=== PATIENT | female | born 1945 | race Caucasian/White ===

== ENCOUNTER 2020-12-23 14:02 | Inpatient (IN) | payer BC, SELFPAY ==
[2020-12-23 14:11] VITALS: BP 104/71; BP 113/63; PULSE 101; PULSE 103; RESP 17; TEMP 35; O2SAT 100; BMI 26.5
--- NOTE | 2020-12-23 14:20 | ECG_ITS ---
Test Reason : WEAKNESS Blood Pressure : / mmHG Vent. Rate : 083 BPM Atrial Rate : 083 BPM P-R Int : 112 ms QRS Dur : 086 ms QT Int : 402 ms P-R-T Axes : 070 059 243 degrees QTc Int : 472 ms Artifact in tracing Normal sinus rhythm Possible Left atrial enlargement ST & T wave abnormality, consider inferolateral ischemia Prolonged QT Abnormal ECG No previous ECGs available Referred By: Anthony Braden Electronically Signed By:HENOK HUERTAS
--- NOTE | 2020-12-23 14:20 | XR_ITS ---
EXAMINATION: CHEST, BILATERAL HUMERUS, RIGHT HIP, PELVIS AND RIGHT ANKLE. CLINICAL INFORMATION: Status post fall. COMPARISON: None TECHNIQUE: Chest one view. Humerus 2 views each. Right ankle 3 views. Right hip 2 views. AP pelvis one view. FINDINGS: CHEST: The lungs are well-expanded and clear of acute pneumonic process. Heart size and pulmonary vascularity is normal. No visible rib fractures seen. RIGHT HUMERUS: There is no visible fracture or bony abnormality. The soft tissues are normal. The shoulder joint is in alignment. Mild degenerative arthritic changes right AC joint are seen. LEFT HUMERUS: There is cortical bone step-off proximal humerus suggestive of probable fracture. There is mild osteopenia. Mild degenerative arthritic changes left AC joint. The glenohumeral joint space is normal. The soft tissues are normal. RIGHT HIP: There is no visible acute fracture, dislocation or subluxation. No bony abnormality seen. The soft tissues are normal. AP PELVIS: There is normal symmetry of bilateral hip joints and SI joints. No visible fracture seen involving the pelvic bones. The soft tissues are normal. RIGHT ANKLE: There is an old healed distal fibular fracture. No acute fracture or dislocation seen. Mild reduction ankle mortise joint space with spurring seen likely DJD. The subtalar joint is normal. There is a small calcaneal heel enthesophyte. There is mild dorsal talonavicular spurring. XR/XR shoulder RT 1V IMPRESSION: Unremarkable chest exam. There is cortical step-off proximal humerus likely fracture of indeterminate age in left humerus. Mild degenerative changes left AC joint. Unremarkable right humerus, right hip, AP pelvis. No fracture or fracture dislocation right ankle except for mild DJD ankle mortise and degenerative calcaneal heel spurring and dorsal talonavicular spurring.
--- NOTE | 2020-12-23 14:20 | PC.NURSE ---
pt to radiology
--- NOTE | 2020-12-23 14:21 | CT_ITS ---
EXAMINATION: HEAD CT AND CERVICAL SPINE CT WITHOUT CONTRAST CLINICAL INFORMATION: Fall COMPARISON: None TECHNIQUE: Axial images through the brain and cervical spine without contrast. Sagittal and coronal reconstructions on the technologist workstation were performed. Patient dose 646+2 7 0 mg/cm. FINDINGS: Head CT: There is no evidence for an extra-axial collection. There is no evidence for intra-axial or extra-axial hemorrhage. The ventricles and extra-axial CSF spaces are prominent suggestive of mild generalized atrophy. There is nonspecific periventricular white matter disease. No mass, mass effect or infarct. There is slightly high attenuation soft tissue swelling adjacent to the bilateral frontal bones and right superior orbit, left greater than right. There is hyperostosis of the frontal bones. No skull fracture is seen. Visualized paranasal sinuses, mastoid air cells and middle ears are clear. Cervical spine: There is exaggerated cervical kyphosis. There is curvature of the lower cervical and upper thoracic spine to the right. Bone alignment is otherwise normal. No acute fracture or dislocation is seen. There is slight loss of height of superior endplate of the T4 vertebral body suggestive of old mild compression fracture. There is degenerative spondylosis from C4-C5 to C6-C7. There is degenerative disc disease at C4-C5. Prevertebral soft tissues are normal. There is evidence of emphysema. Lung apices are clear. There is evidence of atherosclerotic disease. The visualized esophagus is slightly dilated and filled with air. CT/CT cervical spine wo con IMPRESSION: Head CT: Generalized atrophy and nonspecific periventricular white matter disease. No acute findings. Bilateral high attenuation soft tissue adjacent to both frontal bones, left greater than right, questionable for scalp hematomas. Cervical spine: Old mild T4 vertebral body compression fracture. No acute fracture seen. Degenerative changes.
--- NOTE | 2020-12-23 14:26 | ED.FALL ---
HPI - Fall General Chief Complaint: Fall Stated Complaint: found on floor, right hip/arm pain Time Seen by Provider: 12/23/20 14:19 Source: patient Mode of arrival: EMS Limitations: no limitations History of Present Illness HPI Narrative: Patient lives alone per EMS and patient , she fell about 5 days ago unable to get up from the floor stayed on the floor for that time feeling been feeling very weak salt in urine and feces with ecchymosis on the forehead drug rash on the right hip and pain in the right shoulder right hip. Details of the fall is not very clear patient does not remember MD complaint: fall Onset (ago): day(s) (5) Related Data Allergies Allergy/AdvReac Type Severity Reaction Status Date / Time No Known Allergies Allergy Verified 12/23/20 14:20 Review of Systems Review of Systems: Constitutional : No Weight loss, No Fever, No Chills ENT/Mouth : No sore throat, No Rhinorrhea Eyes: No Eye Pain, No Swelling Cardiovascular : No Chest Pain, no palpitations Respiratory : No Cough, No Sputum, no shortness of breath Gastrointestinal : no Nausea, No Vomiting, No Diarrhea, No abdominal Pain, no black stools Genitourinary : No Dysuria, No Urinary Frequency Musculoskeletal : No joint pain, No Myalgias, No Joint Swelling Skin : Ecchymotic rashes and multiple skin abrasions++ Neuro : +++ Weakness, No Numbness, No Dizziness, No Headache Psych : No Anxiety/Panic, No Depression Heme/Lymph: +++ Bruising, No Lymphadenopathy Endocrine : No Polyuria, No Polydipsia All other systems reviewed and are negative [facility] Past Medical History Medical History (Updated 12/23/20 @ 16:35 by Anthony Braden MD) HTN (hypertension) Social History Social History Advance Directives: No Advance Directives Information Provided: Yes Physical Exam Vital Signs: Vital Signs: Last Vital Signs Temp 95 F L 12/23/20 14:11 Pulse 101 H 12/23/20 14:11 Resp 17 12/23/20 14:11 BP 113/63 12/23/20 14:11 Pulse Ox 100 12/23/20 14:11 Body Mass Index 26.5 Const: General: alert, awake, in distress, ill appearing, poor hygiene and tired appearing Nutritional Appearance: thin Orientation/consciousness: patient oriented x3 HENMT: Head: Yes normocephalic, Yes contusion, Yes raccoon eyes and Yes periorbital ecchymosis Ears: hearing grossly normal bilaterally General nose exam: Normal external nose present Face and sinus: Yes normal facial exam Mouth: Abnormal oral and palatal mucosa present (dry) Eyes: General: appearance normal, both eyes and all related structures Conjunctivae: conjunctivae normal Sclerae: sclerae normal Corneas: corneas normal Pupils: Equal, round and reactive pupils present Neck: Neck: Yes normal visual inspection, No midline deformity, No tender and Yes no JVD Chest: Chest palpation & inspection: normal inspection of the chest and normal palpation of entire chest wall Resp: Effort & Inspection: normal respiratory effort Auscultation: clear to auscultation bilaterally, no rales, no rhonchi and no wheezes Percussion: percussion normal Cardio: Jugular venous distension: no JVD Palpation: normal PMI Rate: regular rate Rhythm: regular rhythm Heart sounds: S1 normal heart sound present and S2 normal heart sound present Peripheral pulses: Peripheral pulses 2+ throughout GI: Inspection: Yes normal to inspection Palpation (GI): Soft to palpation and nontender Auscultation: normal bowel sounds : General: Yes no CVA tenderness Back/Spine/Pelvis: Back: no CVA tenderness Thoracic/Lumbar Spine: thoracic and lumbar spine normal to inspection Skin: Full body images: 1. Deep ulcer with surrounding erythema 2. Ecchymosis 3. Abrasion 4. Abrasion 5. Abrasion Neuro: General: patient oriented x3, moves all extremities, no focal motor deficits and CN's II-XI intact bilaterally Cranial nerves: Yes Equal, round and reactive pupils present Extrem: Shoulder/upper arm images: 1. Tenderness proximal humerus no significant deformity Course Course Course Narrative: Patient very weak status post fall lives alone lab showed acute renal failure dehydration and hypernatremia will admit patient for IV hydration Reevaluation(s) Reevaluation #1: Patient's lab showed acute renal failure with mild rhabdomyolysis will admit patient for IV hydration and renal failure MDM - Fall MDM Narrative Medical decision making narrative: Patient status post fall lives alone came with multiple bruises for few days duration x-rays and CT scan negative for any fracture or bleed awaiting for the labs will give IV fluids will review her labs and decide about disposition Lab Data Result diagrams: 12/23/20 15:33 12/23/20 15:33 Labs: Lab Results 12/23/20 12/23/20 12/23/20 Range/Units 15:33 15:33 15:33 WBC 9.2 (4.8-10.8) X10*3/uL RBC 4.27 (4.20-5.50) X10*6/uL Hgb 12.8 (12.0-16.0) g/dl Hct 37.6 (37-47) % MCV 88.1 (80-98) fL MCH 30.0 (27.0-33.0) pg MCHC 34.0 (31.0-35.0) g/dl RDW 13.8 (11.0-16.0) % Plt Count 265 (160-400) X10*3/uL MPV 10.3 (9.4-12.3) fL Immature Gran % (Auto) 0.4 (0.0-0.4) % Neut % (Auto) 85.5 H (45-73) % Lymph % (Auto) 4.2 L (20-40) % [place] % (Auto) 9.8 (2-11) % Eos % (Auto) 0.0 (0-4) % Baso % (Auto) 0.1 (0-2) % Lymph # (Auto) 0.4 L (1.2-4.9) X10*3/uL [place] # (Auto) 0.9 (0.1-1.2) X10*3/uL Eos # (Auto) 0.0 (0.0-0.4) X10*3/uL Baso # (Auto) 0.0 (0.0-0.2) X10*3/uL Abs Immat Gran (auto) 0.04 H (0.00-0.03) X10*3/uL Absolute Neuts (auto) 7.9 (2.0-8.3) X10*3/uL Absolute Nucleated RBC 0.000 (0.0-0.012) X10*3/uL Nucleated RBC % (auto) 0.0 (0.0-0.2) /100WBC Smear Tech's Comments VERIFIED PT 12.5 (10.8-13.0) SEC INR 1.1 (0.9-1.1) APTT 27.9 (24.1-38.0) SEC Sodium 151 H (135-145) mmol/L Potassium 3.9 (3.3-5.1) mmol/l Chloride 116 H (96-108) mmol/L Carbon Dioxide 19 L (22-29) mmol/L Anion Gap 20 (12-20) BUN 93 H* (9-16) mg/dL Creatinine 1.43 H (0.5-1.4) mg/dL Estim Creat Clear Calc 31.5 Estimated GFR 36 Random Glucose 139 H (60-115) mg/dL Lactic Acid (0.5-2.0) mmol/L Calcium 8.7 (8.4-10.2) mg/dL Total Bilirubin 1.0 (0.0-1.0) mg/dL Direct Bilirubin 0.5 (0.0-0.5) mg/dL AST 34 H (5-31) U/L ALT 32 H (0-31) U/L Alkaline Phosphatase 75 (39-117) U/L Total Creatine Kinase (26-140) U/L Troponin I High Sens (<3.5-17.0) ng/L Total Protein 6.0 L (6.5-8.0) g/dL Albumin 3.8 (3.5-5.0) g/dL COVID-19 ([place]) (Negative) COVID-19 Clin Com 12/23/20 12/23/20 12/23/20 Range/Units 15:33 15:33 15:33 WBC (4.8-10.8) X10*3/uL RBC (4.20-5.50) X10*6/uL Hgb (12.0-16.0) g/dl Hct (37-47) % MCV (80-98) fL MCH (27.0-33.0) pg MCHC (31.0-35.0) g/dl RDW (11.0-16.0) % Plt Count (160-400) X10*3/uL MPV (9.4-12.3) fL Immature Gran % (Auto) (0.0-0.4) % Neut % (Auto) (45-73) % Lymph % (Auto) (20-40) % [place] % (Auto) (2-11) % Eos % (Auto) (0-4) % Baso % (Auto) (0-2) % Lymph # (Auto) (1.2-4.9) X10*3/uL [place] # (Auto) (0.1-1.2) X10*3/uL Eos # (Auto) (0.0-0.4) X10*3/uL Baso # (Auto) (0.0-0.2) X10*3/uL Abs Immat Gran (auto) (0.00-0.03) X10*3/uL Absolute Neuts (auto) (2.0-8.3) X10*3/uL Absolute Nucleated RBC (0.0-0.012) X10*3/uL Nucleated RBC % (auto) (0.0-0.2) /100WBC Smear Tech's Comments PT (10.8-13.0) SEC INR (0.9-1.1) APTT (24.1-38.0) SEC Sodium (135-145) mmol/L Potassium (3.3-5.1) mmol/l Chloride (96-108) mmol/L Carbon Dioxide (22-29) mmol/L Anion Gap (12-20) BUN (9-16) mg/dL Creatinine (0.5-1.4) mg/dL Estim Creat Clear Calc Estimated GFR Random Glucose (60-115) mg/dL Lactic Acid 1.7 (0.5-2.0) mmol/L Calcium (8.4-10.2) mg/dL Total Bilirubin (0.0-1.0) mg/dL Direct Bilirubin (0.0-0.5) mg/dL AST (5-31) U/L ALT (0-31) U/L Alkaline Phosphatase (39-117) U/L Total Creatine Kinase (26-140) U/L Troponin I High Sens 18.6 H (<3.5-17.0) ng/L Total Protein (6.5-8.0) g/dL Albumin (3.5-5.0) g/dL COVID-19 ([place]) Negative (Negative) COVID-19 Clin Com See Note 12/23/20 Range/Units 15:33 WBC (4.8-10.8) X10*3/uL RBC (4.20-5.50) X10*6/uL Hgb (12.0-16.0) g/dl Hct (37-47) % MCV (80-98) fL MCH (27.0-33.0) pg MCHC (31.0-35.0) g/dl RDW (11.0-16.0) % Plt Count (160-400) X10*3/uL MPV (9.4-12.3) fL Immature Gran % (Auto) (0.0-0.4) % Neut % (Auto) (45-73) % Lymph % (Auto) (20-40) % [place] % (Auto) (2-11) % Eos % (Auto) (0-4) % Baso % (Auto) (0-2) % Lymph # (Auto) (1.2-4.9) X10*3/uL [place] # (Auto) (0.1-1.2) X10*3/uL Eos # (Auto) (0.0-0.4) X10*3/uL Baso # (Auto) (0.0-0.2) X10*3/uL Abs Immat Gran (auto) (0.00-0.03) X10*3/uL Absolute Neuts (auto) (2.0-8.3) X10*3/uL Absolute Nucleated RBC (0.0-0.012) X10*3/uL Nucleated RBC % (auto) (0.0-0.2) /100WBC Smear Tech's Comments PT (10.8-13.0) SEC INR (0.9-1.1) APTT (24.1-38.0) SEC Sodium (135-145) mmol/L Potassium (3.3-5.1) mmol/l Chloride (96-108) mmol/L Carbon Dioxide (22-29) mmol/L Anion Gap (12-20) BUN (9-16) mg/dL Creatinine (0.5-1.4) mg/dL Estim Creat Clear Calc Estimated GFR Random Glucose (60-115) mg/dL Lactic Acid (0.5-2.0) mmol/L Calcium (8.4-10.2) mg/dL Total Bilirubin (0.0-1.0) mg/dL Direct Bilirubin (0.0-0.5) mg/dL AST (5-31) U/L ALT (0-31) U/L Alkaline Phosphatase (39-117) U/L Total Creatine Kinase 548 H (26-140) U/L Troponin I High Sens (<3.5-17.0) ng/L Total Protein (6.5-8.0) g/dL Albumin (3.5-5.0) g/dL COVID-19 ([place]) (Negative) COVID-19 Clin Com ECG Data Attestation: I personally reviewed and interpreted this ECG as follows: Interpretation: Normal sinus rhythm heart rate 83 beats per minute nonspecific ST T wave changes normal axis impression no acute ischemia Discharge Plan Discharge Clinical Impression: Weakness generalized Acute renal failure Qualifiers: Acute renal failure type: with acute tubular necrosis Qualified Code(s): N17.0 - Acute kidney failure with tubular necrosis Rhabdomyolysis Qualifiers: Rhabdomyolysis type: non-traumatic Qualified Code(s): M62.82 - Rhabdomyolysis Fall Qualifiers: Encounter type: initial encounter Qualified Code(s): W19.XXXA - Unspecified fall, initial encounter Patient Disposition: Admitted As Inpatient
--- NOTE | 2020-12-23 14:27 | XR_ITS ---
EXAMINATION: CHEST, BILATERAL HUMERUS, RIGHT HIP, PELVIS AND RIGHT ANKLE. CLINICAL INFORMATION: Status post fall. COMPARISON: None TECHNIQUE: Chest one view. Humerus 2 views each. Right ankle 3 views. Right hip 2 views. AP pelvis one view. FINDINGS: CHEST: The lungs are well-expanded and clear of acute pneumonic process. Heart size and pulmonary vascularity is normal. No visible rib fractures seen. RIGHT HUMERUS: There is no visible fracture or bony abnormality. The soft tissues are normal. The shoulder joint is in alignment. Mild degenerative arthritic changes right AC joint are seen. LEFT HUMERUS: There is cortical bone step-off proximal humerus suggestive of probable fracture. There is mild osteopenia. Mild degenerative arthritic changes left AC joint. The glenohumeral joint space is normal. The soft tissues are normal. RIGHT HIP: There is no visible acute fracture, dislocation or subluxation. No bony abnormality seen. The soft tissues are normal. AP PELVIS: There is normal symmetry of bilateral hip joints and SI joints. No visible fracture seen involving the pelvic bones. The soft tissues are normal. RIGHT ANKLE: There is an old healed distal fibular fracture. No acute fracture or dislocation seen. Mild reduction ankle mortise joint space with spurring seen likely DJD. The subtalar joint is normal. There is a small calcaneal heel enthesophyte. There is mild dorsal talonavicular spurring. XR/XR hip RT min 2V IMPRESSION: Unremarkable chest exam. There is cortical step-off proximal humerus likely fracture of indeterminate age in left humerus. Mild degenerative changes left AC joint. Unremarkable right humerus, right hip, AP pelvis. No fracture or fracture dislocation right ankle except for mild DJD ankle mortise and degenerative calcaneal heel spurring and dorsal talonavicular spurring.
--- NOTE | 2020-12-23 14:30 | PC.NURSE ---
patient medicated per order
--- NOTE | 2020-12-23 14:41 | XR_ITS ---
EXAMINATION: CHEST, BILATERAL HUMERUS, RIGHT HIP, PELVIS AND RIGHT ANKLE. CLINICAL INFORMATION: Status post fall. COMPARISON: None TECHNIQUE: Chest one view. Humerus 2 views each. Right ankle 3 views. Right hip 2 views. AP pelvis one view. FINDINGS: CHEST: The lungs are well-expanded and clear of acute pneumonic process. Heart size and pulmonary vascularity is normal. No visible rib fractures seen. RIGHT HUMERUS: There is no visible fracture or bony abnormality. The soft tissues are normal. The shoulder joint is in alignment. Mild degenerative arthritic changes right AC joint are seen. LEFT HUMERUS: There is cortical bone step-off proximal humerus suggestive of probable fracture. There is mild osteopenia. Mild degenerative arthritic changes left AC joint. The glenohumeral joint space is normal. The soft tissues are normal. RIGHT HIP: There is no visible acute fracture, dislocation or subluxation. No bony abnormality seen. The soft tissues are normal. AP PELVIS: There is normal symmetry of bilateral hip joints and SI joints. No visible fracture seen involving the pelvic bones. The soft tissues are normal. RIGHT ANKLE: There is an old healed distal fibular fracture. No acute fracture or dislocation seen. Mild reduction ankle mortise joint space with spurring seen likely DJD. The subtalar joint is normal. There is a small calcaneal heel enthesophyte. There is mild dorsal talonavicular spurring. XR/XR humerus RT IMPRESSION: Unremarkable chest exam. There is cortical step-off proximal humerus likely fracture of indeterminate age in left humerus. Mild degenerative changes left AC joint. Unremarkable right humerus, right hip, AP pelvis. No fracture or fracture dislocation right ankle except for mild DJD ankle mortise and degenerative calcaneal heel spurring and dorsal talonavicular spurring.
--- NOTE | 2020-12-23 14:45 | XR_ITS ---
EXAMINATION: CHEST, BILATERAL HUMERUS, RIGHT HIP, PELVIS AND RIGHT ANKLE. CLINICAL INFORMATION: Status post fall. COMPARISON: None TECHNIQUE: Chest one view. Humerus 2 views each. Right ankle 3 views. Right hip 2 views. AP pelvis one view. FINDINGS: CHEST: The lungs are well-expanded and clear of acute pneumonic process. Heart size and pulmonary vascularity is normal. No visible rib fractures seen. RIGHT HUMERUS: There is no visible fracture or bony abnormality. The soft tissues are normal. The shoulder joint is in alignment. Mild degenerative arthritic changes right AC joint are seen. LEFT HUMERUS: There is cortical bone step-off proximal humerus suggestive of probable fracture. There is mild osteopenia. Mild degenerative arthritic changes left AC joint. The glenohumeral joint space is normal. The soft tissues are normal. RIGHT HIP: There is no visible acute fracture, dislocation or subluxation. No bony abnormality seen. The soft tissues are normal. AP PELVIS: There is normal symmetry of bilateral hip joints and SI joints. No visible fracture seen involving the pelvic bones. The soft tissues are normal. RIGHT ANKLE: There is an old healed distal fibular fracture. No acute fracture or dislocation seen. Mild reduction ankle mortise joint space with spurring seen likely DJD. The subtalar joint is normal. There is a small calcaneal heel enthesophyte. There is mild dorsal talonavicular spurring. XR/XR ankle RT min 3V IMPRESSION: Unremarkable chest exam. There is cortical step-off proximal humerus likely fracture of indeterminate age in left humerus. Mild degenerative changes left AC joint. Unremarkable right humerus, right hip, AP pelvis. No fracture or fracture dislocation right ankle except for mild DJD ankle mortise and degenerative calcaneal heel spurring and dorsal talonavicular spurring.
[2020-12-23] MEDS: 0.9 % Sodium Chloride 1,000 ML 999 ML IVCONT ×2 (15:04→16:18)
--- NOTE | 2020-12-23 15:20 | PC.NURSE ---
patient medicated per order
--- NOTE | 2020-12-23 15:30 | PC.NURSE ---
bed bath given to patient
[2020-12-23 15:45] LABS: Basophils Percent Auto 0.1 % (0-2); Hematocrit 37.6 % (37-47); Hemoglobin 12.8 g/dl (12.0-16.0); Imm Gran Abs Auto 0.04 X10*3/uL (0.00-0.03); Imm Gran Pct Auto 0.4 % (0.0-0.4); Lymphocytes Absolute Auto 0.4 X10*3/uL (1.2-4.9); Lymphocytes Percent Auto 4.2 % (20-40); MANUAL DIFF FLAG SCAN; Mean Corpuscular Volume 88.1 fL (80-98); Mean Platelet Volume 10.3 fL (9.4-12.3); Monocytes Absolute Auto 0.9 X10*3/uL (0.1-1.2); Monocytes Percent Auto 9.8 % (2-11); Neutrophils Absolute Auto 7.9 X10*3/uL (2.0-8.3); Neutrophils Percent Auto 85.5 % (45-73); Platelet Count 265 X10*3/uL (160-400); Red Blood Count 4.27 X10*6/uL (4.20-5.50); Red Cell Distribution Width 13.8 % (11.0-16.0); SCAN SMEAR FLAG 1; White Blood Count 9.2 X10*3/uL (4.8-10.8)
[2020-12-23 15:52] LABS: INTERNATIONAL NORM RATIO 1.1 (0.9-1.1); Prothrombin Time 12.5 SEC (10.8-13.0)
[2020-12-23 15:55] LABS: Partial Thromboplastin Time 27.9 SEC (24.1-38.0)
--- NOTE | 2020-12-23 16:00 | PC.NURSE ---
IV INSERTED, LABS DRAWN, VITALS STABLE
[2020-12-23 16:04] LABS: Lactic Acid 1.7 mmol/L (0.5-2.0)
[2020-12-23 16:10] LABS: COVID-19 Test Negative (Negative); IDNOW Serial# 9DD0AD1C
[2020-12-23] MEDS: Morphine Sulfate 4 MG/ML CARTRIDGE IVPUSH (16:16)
[2020-12-23] MEDS: ondansetron HCL 4 MG/2 ML VIAL IVPUSH (16:16)
[2020-12-23 16:20] LABS: Alanine Aminotransferase 32 U/L (0-31); Albumin Level 3.8 g/dL (3.5-5.0); Alkaline Phosphatase 75 U/L (39-117); Anion Gap 20 (12-20); Aspartate Amino Transferase 34 U/L (5-31); Bilirubin Direct 0.5 mg/dL (0.0-0.5); Blood Urea Nitrogen 93 mg/dL (9-16); Calcium 8.7 mg/dL (8.4-10.2); Carbon Dioxide 19 mmol/L (22-29); Chloride 116 mmol/L (96-108); Creatinine Clr Calc Pharmacy 31.5; Estimated Glomerular Filt Rate 36; Glucose Random 139 mg/dL (60-115); Potassium 3.9 mmol/l (3.3-5.1); Sodium 151 mmol/L (135-145); Troponin-I High Sensitivity 18.6 ng/L (<3.5-17.0)
--- NOTE | 2020-12-23 16:21 | PC.NURSE ---
patient medicated per order
[2020-12-23 16:33] LABS: SLIDE REVIEW VERIFIED
--- NOTE | 2020-12-23 17:14 | PM.IMHP ---
History of Present Illness Date of Service: 12/23/20 Chief Complaint: found on ground 75F, history is from patient, she is a poor historian, unable to contact brother. Patient states that she fell 5 days prior to presentation. She states fall was mechanical, fell off of chair. She states she was unable to get back up. She was unclear about her timeline, denies loss of consciousness, unclear how much she is eaten and drunk over the last few days. Her brother came to check on her and found on the ground and called EMS. Traumatic workup was unremarkable. Lab significant for hypernatremia of 151 and acute kidney injury of 1.41 creatinine. Patient given 2 L of normal saline and admission requested. Review of Systems Review of Systems: Constitutional: Denies fever, denies Chills Eyes: denies blurry vision ENT: denies sore throat CVS: denies chest pain Respiratory: Denies dyspnea GI: no abdominal pain : denies dysuria MSK: denies neck pain Skin: denies rash Neuro: denies specific motor weakness Psych: denies suicidal ideation Endocrine: denies heat/cold intoleratnce Hematologic: denies easy bleeding Allergy: denies hives [facility] Medical History B12 deficiency COPD (chronic obstructive pulmonary disease) HLD (hyperlipidemia) HTN (hypertension) Multiple myeloma Plasmacytoma Pertinent family history: no cad Family history: reviewed and not pertinent Social History (Updated 12/23/20 @ 17:17 by Kunal Shaw MD) Smoking Status: Unknown if ever smoked Advance Directives: No Advance Directives Information Provided: Yes Meds Allergies Allergy/AdvReac Type Severity Reaction Status Date / Time No Known Allergies Allergy Verified 12/23/20 14:20 Physical Exam Vital Signs and Narrative: Vital Signs: Last Vital Signs Temp 95 F L 12/23/20 14:11 Pulse 101 H 12/23/20 14:11 Resp 17 12/23/20 14:11 BP 113/63 12/23/20 14:11 Pulse Ox 100 12/23/20 14:11 Body Mass Index 26.5 General: no acute distress, frail HEENT: bialteral periorbital echymosis Neck: normal to visual inspection CVS: S1, S2, RRR Resp: CTA bilateral Chest: non tender GI: soft, non tender, non distended : no CVA tenderness Skin: no rashes Extremities: no edema Neuro: Oriented X3, grossly intact Psych: cooperative, ipmaired insight Results Labs CBC and Chem 7: 12/23/20 15:33 12/23/20 15:33 Labs: Laboratory Results - last 24 hr 12/23/20 12/23/20 12/23/20 15:33 15:33 15:33 MCV 88.1 MCH 30.0 MCHC 34.0 RDW 13.8 Plt Count 265 MPV 10.3 Immature Gran % (Auto) 0.4 Neut % (Auto) 85.5 H Lymph % (Auto) 4.2 L [place] % (Auto) 9.8 Eos % (Auto) 0.0 Baso % (Auto) 0.1 Lymph # (Auto) 0.4 L [place] # (Auto) 0.9 Eos # (Auto) 0.0 Baso # (Auto) 0.0 Abs Immat Gran (auto) 0.04 H Absolute Neuts (auto) 7.9 Absolute Nucleated RBC 0.000 Nucleated RBC % (auto) 0.0 Smear Tech's Comments VERIFIED PT 12.5 INR 1.1 APTT 27.9 Anion Gap 20 Estim Creat Clear Calc 31.5 Estimated GFR 36 Random Glucose 139 H Lactic Acid Calcium 8.7 Total Bilirubin 1.0 Direct Bilirubin 0.5 AST 34 H ALT 32 H Alkaline Phosphatase 75 Total Creatine Kinase Troponin I High Sens Total Protein 6.0 L Albumin 3.8 COVID-19 ([place]) [facility] 12/23/20 12/23/20 12/23/20 15:33 15:33 15:33 MCV MCH MCHC RDW Plt Count MPV Immature Gran % (Auto) Neut % (Auto) Lymph % (Auto) [place] % (Auto) Eos % (Auto) Baso % (Auto) Lymph # (Auto) [place] # (Auto) Eos # (Auto) Baso # (Auto) Abs Immat Gran (auto) Absolute Neuts (auto) Absolute Nucleated RBC Nucleated RBC % (auto) Smear Tech's Comments PT INR APTT Anion Gap Estim Creat Clear Calc Estimated GFR Random Glucose Lactic Acid 1.7 Calcium Total Bilirubin Direct Bilirubin AST ALT Alkaline Phosphatase Total Creatine Kinase Troponin I High Sens 18.6 H Total Protein Albumin COVID-19 ([place]) Negative COVID-19 Clin Com See Note 12/23/20 15:33 MCV MCH MCHC RDW Plt Count MPV Immature Gran % (Auto) Neut % (Auto) Lymph % (Auto) [place] % (Auto) Eos % (Auto) Baso % (Auto) Lymph # (Auto) [place] # (Auto) Eos # (Auto) Baso # (Auto) Abs Immat Gran (auto) Absolute Neuts (auto) Absolute Nucleated RBC Nucleated RBC % (auto) Smear Tech's Comments PT INR APTT Anion Gap Estim Creat Clear Calc Estimated GFR Random Glucose Lactic Acid Calcium Total Bilirubin Direct Bilirubin AST ALT Alkaline Phosphatase Total Creatine Kinase 548 H Troponin I High Sens Total Protein Albumin COVID-19 ([place]) COVID-19 Clin Com Imaging Radiologist's Impressions: Impressions Chest X-Ray 12/23/20 14:20 IMPRESSION: Unremarkable chest exam. There is cortical step-off proximal humerus likely fracture of indeterminate age in left humerus. Mild degenerative changes left AC joint. Unremarkable right humerus, right hip, AP pelvis. No fracture or fracture dislocation right ankle except for mild DJD ankle mortise and degenerative calcaneal heel spurring and dorsal talonavicular spurring. Head CT 12/23/20 14:20 IMPRESSION: Head CT: Generalized atrophy and nonspecific periventricular white matter disease. No acute findings. Bilateral high attenuation soft tissue adjacent to both frontal bones, left greater than right, questionable for scalp hematomas. Cervical spine: Old mild T4 vertebral body compression fracture. No acute fracture seen. Degenerative changes. Pelvis X-Ray 12/23/20 14:20 IMPRESSION: Unremarkable chest exam. There is cortical step-off proximal humerus likely fracture of indeterminate age in left humerus. Mild degenerative changes left AC joint. Unremarkable right humerus, right hip, AP pelvis. No fracture or fracture dislocation right ankle except for mild DJD ankle mortise and degenerative calcaneal heel spurring and dorsal talonavicular spurring. Shoulder X-Ray 12/23/20 14:20 IMPRESSION: Unremarkable chest exam. There is cortical step-off proximal humerus likely fracture of indeterminate age in left humerus. Mild degenerative changes left AC joint. Unremarkable right humerus, right hip, AP pelvis. No fracture or fracture dislocation right ankle except for mild DJD ankle mortise and degenerative calcaneal heel spurring and dorsal talonavicular spurring. Cervical Spine CT 12/23/20 14:21 IMPRESSION: Head CT: Generalized atrophy and nonspecific periventricular white matter disease. No acute findings. Bilateral high attenuation soft tissue adjacent to both frontal bones, left greater than right, questionable for scalp hematomas. Cervical spine: Old mild T4 vertebral body compression fracture. No acute fracture seen. Degenerative changes. Hip X-Ray 12/23/20 14:27 IMPRESSION: Unremarkable chest exam. There is cortical step-off proximal humerus likely fracture of indeterminate age in left humerus. Mild degenerative changes left AC joint. Unremarkable right humerus, right hip, AP pelvis. No fracture or fracture dislocation right ankle except for mild DJD ankle mortise and degenerative calcaneal heel spurring and dorsal talonavicular spurring. Humerus X-Ray 12/23/20 14:41 IMPRESSION: Unremarkable chest exam. There is cortical step-off proximal humerus likely fracture of indeterminate age in left humerus. Mild degenerative changes left AC joint. Unremarkable right humerus, right hip, AP pelvis. No fracture or fracture dislocation right ankle except for mild DJD ankle mortise and degenerative calcaneal heel spurring and dorsal talonavicular spurring. Humerus X-Ray 12/23/20 14:41 IMPRESSION: Unremarkable chest exam. There is cortical step-off proximal humerus likely fracture of indeterminate age in left humerus. Mild degenerative changes left AC joint. Unremarkable right humerus, right hip, AP pelvis. No fracture or fracture dislocation right ankle except for mild DJD ankle mortise and degenerative calcaneal heel spurring and dorsal talonavicular spurring. Ankle X-Ray 12/23/20 14:45 IMPRESSION: Unremarkable chest exam. There is cortical step-off proximal humerus likely fracture of indeterminate age in left humerus. Mild degenerative changes left AC joint. Unremarkable right humerus, right hip, AP pelvis. No fracture or fracture dislocation right ankle except for mild DJD ankle mortise and degenerative calcaneal heel spurring and dorsal talonavicular spurring. Assessment and Plan (1) Acute renal failure: Qualifiers: Acute renal failure type: with acute tubular necrosis Qualified Code(s): N17.0 - Acute kidney failure with tubular necrosis Status: Acute (2) Weakness generalized: Status: Acute (3) Fall: Qualifiers: Encounter type: initial encounter Qualified Code(s): W19.XXXA - Unspecified fall, initial encounter Status: Acute (4) HTN (hypertension): Status: Acute (5) Multiple myeloma: Status: Acute (6) B12 deficiency: Status: Acute (7) Plasmacytoma: Status: Acute 75F presented with fall Mechanical fall complicated by acute kidney injury and dehydration with hypernatremia Status post 2 L of normal saline in ED, will change fluids to D5 half-normal saline, monitor BMP Physical therapy eval No evidence of significant trauma on imaging Hypertension Currently low normal blood pressure, hold BP meds B12 deficiency B12 supplement Multiple myeloma/plasmacytoma Outpatient follow-up COPD Stable Full code DVT prophylaxis - mechanical, will hold off on Lovenox given hematomas
[2020-12-23 17:17] VITALS: BP 103/45; PULSE 79; RESP 18; TEMP 36.6; O2SAT 99
--- NOTE | 2020-12-23 18:39 | PC.NURSE ---
REPORT GIVEN TO FLOOR
[2020-12-23 19:52] VITALS: BP 98/54; PULSE 81; RESP 18; TEMP 36.7; O2SAT 100
[2020-12-23] MEDS: Dextrose 5 % and 0.45 % NaCl 1,000 ML 100 ML IVCONT (20:35)
[2020-12-23] MEDS: 0.9 % Sodium Chloride Flush 3 ML SYRINGE IVFLUSH (20:35)
[2020-12-23] MEDS: Acetaminophen 325 MG TABLET 650 MG PO (20:38)
[2020-12-23 23:24] VITALS: BP 96/45; PULSE 87; RESP 18; TEMP 35.9; O2SAT 99
[2020-12-24] VITALS (8 sets, daily range): BP systolic 92–132; BP diastolic 39–72; PULSE 76–96; RESP 16–19; TEMP 36.2–37.3; O2SAT 96–100
[2020-12-24] MEDS: Dextrose 5 % and 0.45 % NaCl 1,000 ML 100 ML IVCONT (05:17)
[2020-12-24 06:43] LABS: Basophils Percent Auto 0.1 % (0-2); Eosinophils Percent Auto 0.1 % (0-4); Hematocrit 32.9 % (37-47); Hemoglobin 11.2 g/dl (12.0-16.0); Imm Gran Abs Auto 0.03 X10*3/uL (0.00-0.03); Imm Gran Pct Auto 0.4 % (0.0-0.4); Lymphocytes Absolute Auto 0.5 X10*3/uL (1.2-4.9); Lymphocytes Percent Auto 7.7 % (20-40); MANUAL DIFF FLAG SCAN; Mean Corpuscular Hemoglobin 30.1 pg (27.0-33.0); Mean Corpuscular Volume 88.4 fL (80-98); Mean Platelet Volume 10.3 fL (9.4-12.3); Monocytes Absolute Auto 0.8 X10*3/uL (0.1-1.2); Monocytes Percent Auto 12.5 % (2-11); Neutrophils Absolute Auto 5.3 X10*3/uL (2.0-8.3); Neutrophils Percent Auto 79.2 % (45-73); Platelet Count 203 X10*3/uL (160-400); Red Blood Count 3.72 X10*6/uL (4.20-5.50); Red Cell Distribution Width 13.7 % (11.0-16.0); SCAN SMEAR FLAG 1; White Blood Count 6.7 X10*3/uL (4.8-10.8)
[2020-12-24 07:11] LABS: Blood Urea Nitrogen 72 mg/dL (9-16); Calcium 7.7 mg/dL (8.4-10.2); Estimated Glomerular Filt Rate 50; Glucose Random 151 mg/dL (60-115)
[2020-12-24 07:24] LABS: Anion Gap 13 (12-20); Carbon Dioxide 23 mmol/L (22-29); Chloride 119 mmol/L (96-108); Potassium 3.5 mmol/l (3.3-5.1); Sodium 151 mmol/L (135-145)
[2020-12-24 07:27] LABS: SLIDE REVIEW VERIFIED
[2020-12-24] MEDS: Cyanocobalamin (Vitamin B-12) 1,000 MCG TABLET 1000 MCG PO (08:51)
[2020-12-24] MEDS: Dextrose 5 % 1,000 ML 100 ML IVCONT ×2 (08:51→18:24)
[2020-12-24] MEDS: 0.9 % Sodium Chloride Flush 3 ML SYRINGE IVFLUSH (08:52)
[2020-12-24] MEDS: Acetaminophen 325 MG TABLET 650 MG PO (08:56)
--- NOTE | 2020-12-24 09:27 | MHC.CM.PN ---
NO CASE MANAGEMENT INTERVENTION INDICATED. DEPT. NAMES WRITTEN ON WHITE BOARD PATIENT IS DISCHARGED HOME WITH NO SERVICES.
--- NOTE | 2020-12-24 09:30 | MHC.CM.PN ---
PATIENT LIVES ALONE. SHE HAS A CANE, WALKER, AND WHEEL CHAIR. SHE REPORTS THAT SHE DRIVES HERSELF WHERE NEEDED. NO VNA OR HOME CARE SERVICES PATIENT HAS A NEIGHBOR IN APARTMENT -1 THAT ASSISTS WHEN NEEDED; HOWEVER, SHE IS UNABLE TO RECALL HIS NAME. SHE IDENTIFIES HER BROTHER BAL HER HCP. SHE IS UNABLE TO RECALL HIS PHONE NUMBER, BUT STATES THAT HE LIVES IN [place]. SHE WILL ASK FOR THIS [employer] IF SHE IS ABLE TO RECALL THE NUMBER, AND SHE AGREES TO COMPLETE A HCP FOR HER MEDICAL RECORDS IF SO. SHE AGREES WITH UNDERSTANDING IMM DELIVERY, AND ASKS THIS [employer]ER OT SIGN FOR HER (SHE IS EATING BREAKFAST AT TIME OF ASSESSMENT) IMM 12/24 IN CHART
--- NOTE | 2020-12-24 09:36 | MHC.CM.PN ---
PATIENT REPORTS THAT HER PCP IS AT [facility], ALTHOUGH SHE IS UNABLE TO RECALL PCP NAME.
--- NOTE | 2020-12-24 10:05 | HO.PM.IMPN ---
Subjective Subjective Date of Service: 12/24/20 Interval History: feeling better Cardiovascular Cardiovascular: Reports no additional cardiovascular complaints Respiratory Respiratory: Reports no additional respiratory complaints Physical Exam Vital Signs: Vital Signs: Last Vital Signs Temp 97.4 F 12/24/20 03:41 Pulse 76 12/24/20 03:41 Resp 18 12/24/20 03:41 BP 105/49 L 12/24/20 03:47 Pulse Ox 100 12/24/20 03:41 Body Mass Index 26.5 General: AO X 3, no acute distress Resp: CTA bilateral CVS: S1,S2,RRR GI: soft, non tender, non distended Neuro: motor grossly intact Psych: appropriate affect periorbital hematomas Objective Data Current Medications Generic Name Dose Route Start Last Admin Trade Name Freq PRN Reason Stop Dose Admin Acetaminophen 650 mg 12/23/20 19:19 12/24/20 08:56 Acetaminophen 325 Mg Tablet PO 650 mg Q6H PRN Administration Pain, Mild (Pain Scale 1-3) Cyanocobalamin 1,000 mcg 12/24/20 09:00 12/24/20 08:51 Cyanocobalamin (Vitamin B-12) 1,000 Mcg Tablet PO 1,000 mcg DAILY ISABEL Administration Dextrose 1,000 mls @ 100 mls/hr 12/24/20 08:00 12/24/20 08:51 D5w IVCONT 100 mls/hr .Q10H ISABEL Administration Sodium Chloride 3 ml 12/24/20 00:00 12/24/20 08:52 0.9 % Sodium Chloride Flush 3 Ml Syringe IVFLUSH 3 ml QSHIFT ISABEL Administration Labs CBC & Chem 7: 12/24/20 06:18 12/24/20 06:18 Assessment and Plan (1) Acute renal failure: Status: Acute (2) Weakness generalized: Status: Acute (3) Fall: Status: Acute (4) HTN (hypertension): Status: Acute (5) Multiple myeloma: Status: Acute (6) B12 deficiency: Status: Acute (7) Plasmacytoma: Status: Acute Assessment and Plan: 75F presented with fall Mechanical fall complicated by acute kidney injury and dehydration with hypernatremia ROSIE resolved, change fluids to d5w, monitor Physical therapy eval No evidence of significant trauma on imaging Hypertension Currently low normal blood pressure, hold BP meds B12 deficiency B12 supplement Multiple myeloma/plasmacytoma Outpatient follow-up COPD Stable Full code DVT prophylaxis - mechanical, will hold off on Lovenox given hematomas
[2020-12-24] MEDS: oxyCODONE HCl Immed Release 5 MG TABLET 2.5 MG PO (14:46)
--- NOTE | 2020-12-24 15:09 | PC.NURSE ---
Pt c/o burning tongue. Poor appetite. No new meds were given. Dr. Shaw made aware. Pt encouraged to drink water. Oncoming nurse updated.
--- NOTE | 2020-12-24 15:42 | MHC.CM.PN ---
PATIENT ASSIGNED HER BROTHER, LEANDRO [phone] HER HCP. COPY NOW IN CHART. WHEN LEANDRO CALLS THIS [employer] BACK, ADDRESS WILL BE COLLECTED, AND HCP COPY WILL BE MAILED CERTIFIED.
[2020-12-25 03:35] VITALS: BP 102/49; PULSE 81; RESP 16; TEMP 35.6; O2SAT 98
[2020-12-25] MEDS: Dextrose 5 % 1,000 ML 100 ML IVCONT (03:54)
[2020-12-25 07:30] LABS: MANUAL DIFF FLAG NO
[2020-12-25] MEDS: Cyanocobalamin (Vitamin B-12) 1,000 MCG TABLET 1000 MCG PO (07:39)
[2020-12-25 07:41] LABS: Eosinophils Absolute Auto 0.1 X10*3/uL (0.0-0.4); Hematocrit 30.3 % (37-47); Hemoglobin 10.2 g/dl (12.0-16.0); Imm Gran Abs Auto 0.09 X10*3/uL (0.00-0.03); Imm Gran Pct Auto 1.5 % (0.0-0.4); Lymphocytes Absolute Auto 0.8 X10*3/uL (1.2-4.9); Lymphocytes Percent Auto 12.7 % (20-40); Mean Corpuscular HGB Conc 33.7 g/dl (31.0-35.0); Mean Corpuscular Hemoglobin 30.1 pg (27.0-33.0); Mean Corpuscular Volume 89.4 fL (80-98); Mean Platelet Volume 10.1 fL (9.4-12.3); Monocytes Absolute Auto 0.6 X10*3/uL (0.1-1.2); Monocytes Percent Auto 10.4 % (2-11); Neutrophils Absolute Auto 4.4 X10*3/uL (2.0-8.3); Neutrophils Percent Auto 73.4 % (45-73); Platelet Count 148 X10*3/uL (160-400); Red Blood Count 3.39 X10*6/uL (4.20-5.50); Red Cell Distribution Width 13.4 % (11.0-16.0)
[2020-12-25 08:00] VITALS: BP 104/53; PULSE 85; RESP 16; TEMP 36.9; O2SAT 97
[2020-12-25 08:09] LABS: Anion Gap 12 (12-20); Blood Urea Nitrogen 40 mg/dL (9-16); Calcium 7.5 mg/dL (8.4-10.2); Carbon Dioxide 23 mmol/L (22-29); Chloride 108 mmol/L (96-108); Creatinine Clr Calc Pharmacy 51.1; Estimated Glomerular Filt Rate > 60; Glucose Fasting 116 mg/dL (60-99); Potassium 3.6 mmol/l (3.3-5.1); Sodium 139 mmol/L (135-145)
--- NOTE | 2020-12-25 09:41 | P.PNIM_ITS ---
Subjective Subjective Date of Service: 12/25/20 Interval History: headache Cardiovascular Cardiovascular: Reports no additional cardiovascular complaints Gastrointestinal Gastrointestinal: Reports no additional gastrointestinal complaints Physical Exam Vital Signs: Vital Signs: Last Vital Signs Temp 98.4 F 12/25/20 08:00 Pulse 85 12/25/20 08:00 Resp 16 12/25/20 08:00 BP 104/53 L 12/25/20 08:00 Pulse Ox 97 12/25/20 08:00 Body Mass Index 26.5 General: AO X 3, no acute distress Resp: CTA bilateral CVS: S1,S2,RRR GI: soft, non tender, non distended Neuro: motor grossly intact Psych: appropriate affect Objective Data Current Medications Generic Name Dose Route Start Last Admin Trade Name Freq PRN Reason Stop Dose Admin Acetaminophen 650 mg 12/23/20 19:19 12/24/20 08:56 Acetaminophen 325 Mg Tablet PO 650 mg Q6H PRN Administration Pain, Mild (Pain Scale 1-3) Cyanocobalamin 1,000 mcg 12/24/20 09:00 12/25/20 07:39 Cyanocobalamin (Vitamin B-12) 1,000 Mcg Tablet PO 1,000 mcg DAILY ISABEL Administration Oxycodone HCl 2.5 mg 12/24/20 12:20 12/24/20 14:46 Oxycodone Hcl Immed Release 5 Mg Tablet PO 2.5 mg Q6H PRN Administration Pain, Mild (Pain Scale 1-3) Sodium Chloride 3 ml 12/24/20 00:00 12/25/20 07:39 0.9 % Sodium Chloride Flush 3 Ml Syringe IVFLUSH Not Given QSHIFT COUNT INCLUDES THE [facility] Labs CBC & Chem 7: 12/25/20 07:16 12/25/20 07:16 Microbiology Microbiology Results: Microbiology 12/23/20 15:32 Blood - Venous Blood Culture - Preliminary No growth after 24 hours. 12/23/20 15:32 Blood - Venous Blood Culture - Preliminary No growth after 24 hours. Assessment and Plan (1) Acute renal failure: Status: Acute (2) Weakness generalized: Status: Acute (3) Fall: Status: Acute (4) HTN (hypertension): Status: Acute (5) Multiple myeloma: Status: Acute (6) B12 deficiency: Status: Acute (7) Plasmacytoma: Status: Acute Assessment and Plan: 75F presented with fall Mechanical fall complicated by acute kidney injury and dehydration with hypernatremia resolved, dc fluids Physical therapy eval No evidence of significant trauma on imaging Hypertension Currently low normal blood pressure, hold BP meds B12 deficiency B12 supplement Multiple myeloma/plasmacytoma Outpatient follow-up COPD Stable Full code DVT prophylaxis - mechanical, will hold off on Lovenox given hematomas
--- NOTE | 2020-12-25 10:10 | MHC.CM.PN ---
PER CONVERSATION WITH PATIENT ABOUT REHAB CHOICES, REFERRALS PLACED TO [facility], [facility], AND [facility]. pATIENT WILL NEED PHYSICAL THERAPY EVAL DUE TO HER MANAGED MEDICARE PRODUCT. [facility] IS OFFERING TO GO FOR AUTH ON SATURDAY. PATIENT WILL NEED ANOTHER COVID SWAB WELL. PATIENT AND HOSPITALIST AWARE.
[2020-12-25] MEDS: Acetaminophen 325 MG TABLET 650 MG PO (10:40)
--- NOTE | 2020-12-25 11:46 | PM.DS ---
DS: Providers Provider Date of Service: 12/25/20 Date of admission: 12/23/20 17:13 Primary care physician: Unknown Physician DS: Diagnosis Discharge Diagnosis (1) Acute renal failure: Status: Acute (2) Weakness generalized: Status: Acute (3) Fall: Status: Acute (4) HTN (hypertension): Status: Acute (5) Multiple myeloma: Status: Acute (6) B12 deficiency: Status: Acute (7) Plasmacytoma: Status: Acute DS: Medications Discharge Medications Home Medications: Home Medications Medication Instructions Recorded Confirmed calcium carbonate-vitamin D3 1 tab PO BID 12/23/20 12/23/20 cyanocobalamin (vitamin B-12) 1,000 mcg PO DAILY 12/23/20 12/23/20 simvastatin 10 mg PO DAILY 12/23/20 12/23/20 DS: Summary Hospital Course Hospital Course: Patient was admitted for fall complicated by acute kidney injury and hypernatremia complicated by some a metabolic encephalopathy. Her blood pressure medications were held for low normal blood pressures. She was given IV fluids and her electrolytes and creatinine improved to normal. Her mental status returned to baseline. She was evaluated by Physical therapy who recommended short-term rehab. Patient will be discharged to senior care facility. Time Spent with Patient Time attestation: Total time spent providing and/or coordinating discharge services: Discharge coordination time: Greater than 30 minutes Physical Exam Vital Signs: Vital Signs: Last Vital Signs Temp 98.4 F 12/25/20 08:00 Pulse 85 12/25/20 08:00 Resp 16 12/25/20 08:00 BP 104/53 L 12/25/20 08:00 Pulse Ox 97 12/25/20 08:00 Body Mass Index 26.5 General: AO X 3, no acute distress, periorbital hematoma Resp: CTA bilateral CVS: S1,S2,RRR GI: soft, non tender, non distended Neuro: motor grossly intact Psych: appropriate affect DS: Data Data Completed and Pending Labs on day of discharge: Laboratory Tests 12/23/20 12/23/20 12/23/20 15:33 15:33 15:33 WBC 9.2 RBC 4.27 Hgb 12.8 Hct 37.6 MCV 88.1 MCH 30.0 MCHC 34.0 RDW 13.8 Plt Count 265 MPV 10.3 Immature Gran % (Auto) 0.4 Neut % (Auto) 85.5 H Lymph % (Auto) 4.2 L [place] % (Auto) 9.8 Eos % (Auto) 0.0 Baso % (Auto) 0.1 Lymph # (Auto) 0.4 L [place] # (Auto) 0.9 Eos # (Auto) 0.0 Baso # (Auto) 0.0 Abs Immat Gran (auto) 0.04 H Absolute Neuts (auto) 7.9 Absolute Nucleated RBC 0.000 Nucleated RBC % (auto) 0.0 Smear Tech's Comments VERIFIED PT 12.5 INR 1.1 APTT 27.9 Sodium 151 H Potassium 3.9 Chloride 116 H Carbon Dioxide 19 L Anion Gap 20 BUN 93 H* Creatinine 1.43 H Estim Creat Clear Calc 31.5 Estimated GFR 36 Random Glucose 139 H Fasting Glucose Lactic Acid Calcium 8.7 Total Bilirubin 1.0 Direct Bilirubin 0.5 AST 34 H ALT 32 H Alkaline Phosphatase 75 Total Creatine Kinase Troponin I High Sens Total Protein 6.0 L Albumin 3.8 COVID-19 ([place]) COVID-[facility] 12/23/20 12/23/20 12/23/20 15:33 15:33 15:33 WBC RBC Hgb Hct MCV MCH MCHC RDW Plt Count MPV Immature Gran % (Auto) Neut % (Auto) Lymph % (Auto) [place] % (Auto) Eos % (Auto) Baso % (Auto) Lymph # (Auto) [place] # (Auto) Eos # (Auto) Baso # (Auto) Abs Immat Gran (auto) Absolute Neuts (auto) Absolute Nucleated RBC Nucleated RBC % (auto) Smear Tech's Comments PT INR APTT Sodium Potassium Chloride Carbon Dioxide Anion Gap BUN Creatinine Estim Creat Clear Calc Estimated GFR Random Glucose Fasting Glucose Lactic Acid 1.7 Calcium Total Bilirubin Direct Bilirubin AST ALT Alkaline Phosphatase Total Creatine Kinase Troponin I High Sens 18.6 H Total Protein Albumin COVID-19 ([place]) Negative COVID-19 [facility] See Note 12/23/20 12/24/20 12/24/20 15:33 06:18 06:18 WBC 6.7 RBC 3.72 L Hgb 11.2 L Hct 32.9 L MCV 88.4 MCH 30.1 MCHC 34.0 RDW 13.7 Plt Count 203 MPV 10.3 Immature Gran % (Auto) 0.4 Neut % (Auto) 79.2 H Lymph % (Auto) 7.7 L [place] % (Auto) 12.5 H Eos % (Auto) 0.1 Baso % (Auto) 0.1 Lymph # (Auto) 0.5 L [place] # (Auto) 0.8 Eos # (Auto) 0.0 Baso # (Auto) 0.0 Abs Immat Gran (auto) 0.03 Absolute Neuts (auto) 5.3 Absolute Nucleated RBC 0.000 Nucleated RBC % (auto) 0.0 Smear Tech's Comments VERIFIED PT INR APTT Sodium 151 H Potassium 3.5 Chloride 119 H Carbon Dioxide 23 Anion Gap 13 BUN 72 H Creatinine 1.07 Estim Creat Clear Calc 42.0 Estimated GFR 50 Random Glucose 151 H Fasting Glucose Lactic Acid Calcium 7.7 L D Total Bilirubin Direct Bilirubin AST ALT Alkaline Phosphatase Total Creatine Kinase 548 H Troponin I High Sens Total Protein Albumin COVID-19 ([place]) COVID-19 [facility] Com 12/25/20 12/25/20 07:16 07:16 WBC 6.0 RBC 3.39 L Hgb 10.2 L Hct 30.3 L MCV 89.4 MCH 30.1 MCHC 33.7 RDW 13.4 Plt Count 148 L D MPV 10.1 Immature Gran % (Auto) 1.5 H Neut % (Auto) 73.4 H Lymph % (Auto) 12.7 L [place] % (Auto) 10.4 Eos % (Auto) 2.0 Baso % (Auto) 0.0 Lymph # (Auto) 0.8 L [place] # (Auto) 0.6 Eos # (Auto) 0.1 Baso # (Auto) 0.0 Abs Immat Gran (auto) 0.09 H Absolute Neuts (auto) 4.4 Absolute Nucleated RBC 0.000 Nucleated RBC % (auto) 0.0 Smear Tech's Comments PT INR APTT Sodium 139 Potassium 3.6 Chloride 108 Carbon Dioxide 23 Anion Gap 12 BUN 40 H Creatinine 0.88 Estim Creat Clear Calc 51.1 Estimated GFR > 60 Random Glucose Fasting Glucose 116 H Lactic Acid Calcium 7.5 L Total Bilirubin Direct Bilirubin AST ALT Alkaline Phosphatase Total Creatine Kinase Troponin I High Sens Total Protein Albumin COVID-19 ([place]) COVID-19 Clin Com Preliminary micro results at discharge 12/23/20 15:32 Blood Culture - Preliminary Blood - Venous No growth after 24 hours. 12/23/20 15:32 Blood Culture - Preliminary Blood - Venous No growth after 24 hours. Discharge Plan Discharge Patient Disposition: er SNF Referrals: Quiana Nettles [facility] [Outside] Physician,Unknown [Primary Care Provider] - Discharge Medications: Continued simvastatin 10 mg tablet 10 mg PO DAILY RF: 0 cyanocobalamin (vitamin B-12) 1,000 mcg tablet 1,000 mcg PO DAILY RF: 0 calcium carbonate-vitamin D3 500 mg(1,250mg) -400 unit tablet,chewable 1 tab PO BID RF: 0 Discontinued amlodipine 5 mg tablet 5 mg PO DAILY RF: 0 lisinopril 5 mg tablet 5 mg PO DAILY RF: 0 Discharge Orders: Discharge Order (Routine); Ordered 12/25/20 Ordered By: Kunal Shaw Activity on Discharge: As tolerated Stand Alone Forms: Patient Portal Discharge page Care Plan Goals: recovery Health Concerns: fall, debility Plan of Treatment: stop bp meds... rehab
--- NOTE | 2020-12-25 11:48 | MHC.CM.PN ---
PATIENT ACCEPTS [facility] BED OFFER FOR SHORT TERM REHAB. [facility] TO BE ARRANGED FOR 13:30. RN AND PATIENT AWARE OF PLAN. CASE MANAGEMENT TO CONTACT HCP AND INFORM HIM OF DISCHARGE PLAN.
[2020-12-25 12:00] VITALS: BP 110/53; PULSE 97; RESP 16; TEMP 37.2; O2SAT 98
--- NOTE | 2020-12-25 14:43 | MHC.INPTTRAN ---
Pt alert and oriented, forgetful at times. Admitted after being found on floor x5days after falling at home. Pt usually lives at home alone. Pt has bruising around bilateral legs and forehead. Unstageable pressure wound R hip, DSD. Abrasions R inner thigh, R shoulder, L knee has abrasion/blister. Pt c/o back pain, given PRN Tylenol with effect. Regular diet. 1-2 assist.
== END 2020-12-25 15:50 | disposition skilled nursing facility (03) | DRG 682 ==
LOC: HO.ED 16:35 → HO.EDOVER 18:18 → HO.S3 18:25
PROVIDERS: Admitting Provider Internal Medicine; Emergency Provider Internal Medicine; Visit Provider Internal Medicine
DX: N17.0 Acute kidney failure with tubular necrosis (principal); G93.41 Metabolic encephalopathy; E87.0 Hyperosmolality and hypernatremia; M62.82 Rhabdomyolysis; C90.30 Solitary plasmacytoma not having achieved remission; E53.8 Deficiency of other specified B group vitamins; E78.5 Hyperlipidemia, unspecified; I10 Essential (primary) hypertension; E86.0 Dehydration; J44.9 Chronic obstructive pulmonary disease, unspecified; Z91.81 History of falling; Z20.822 Contact with and (suspected) exposure to COVID-19; Z79.899 Other long term (current) drug therapy
CPT/HCPCS: 36415; 70450; 71045; 72125; 72170; 73020; 73060; 73502; 73610; 80048; 80076; 82550; 83605; 84484; 85025; 85610; 85730; 87040; 87635; 93005; 96361; 96374; 96375; 97163; 99285; J2270; J2405

== ENCOUNTER 2021-03-02 11:43 | Emergency (ER) | payer MEDICARE, SELFPAY ==
--- NOTE | ~2021-03-02 | XR_ITS ---
EXAMINATION: XR CHEST CLINICAL INFORMATION: Confusion COMPARISON: 12/23/2020 TECHNIQUE: 2 views of the chest were obtained. FINDINGS: The lungs are well expanded. There is no focal consolidation, edema, or effusion. No pneumothorax. The cardiomediastinal silhouette is within normal limits. No acute osseous abnormality. Degenerative changes of the spine. Likely chronic healed proximal left humeral fracture. XR/XR chest 2V IMPRESSION: No acute pulmonary finding.
--- NOTE | ~2021-03-02 | XR_ITS ---
EXAMINATION: XR KNEE, LEFT CLINICAL INFORMATION: Acute on chronic left knee pain with wound since December COMPARISON: None TECHNIQUE: Four views of the left knee. FINDINGS: No fracture or subluxation. There is significant narrowing at the patellofemoral compartment. Tricompartmental marginal osteophytes are present. Enthesophyte formation of the patella. Suspect a small suprapatellar joint effusion. Vascular calcifications noted. XR/XR knee LT 4V IMPRESSION: Significant narrowing of the patellofemoral compartment. Tricompartment marginal osteophytes. Suspect small joint effusion.
--- NOTE | ~2021-03-02 | CT_ITS ---
EXAMINATION: CT HEAD WITHOUT CONTRAST CLINICAL INFORMATION: Confusion COMPARISON: 12/23/2020 TECHNIQUE: Contiguous axial imaging was performed from the skull base to vertex without intravenous contrast. This CT examination was performed using dose optimization techniques as appropriate, variously including the following: * Automated exposure control * Adjustment of mA and/or kV according to patient size (this includes techniques or standardized protocols for targeted exams where dose is matched to indication/reason for exam; i.e. extremities or head) Use of iterative reconstruction technique DLP: 600 mGy-cm. FINDINGS: There is no evidence of acute intracranial hemorrhage or territorial infarction. No abnormal mass effect or midline shift is seen. Rosales to white matter differentiation is well preserved. No extra-axial fluid collections are identified. No hydrocephalus. Proportional prominence of the ventricles and sulcal spaces is consistent with mild volume loss. Patchy periventricular and deep white matter hypoattenuation is consistent with mild small vessel ischemic changes. No acute osseous or soft tissue abnormality. Hyperostosis frontalis interna. The mastoid air cells and visualized portions of the paranasal sinuses are well aerated. CT/CT head/brain wo con IMPRESSION: No acute intracranial pathology. Mild volume loss with small vessel ischemic changes.
[2021-03-02 12:04] VITALS: BP 160/92; BP 185/88; PULSE 108; PULSE 92; RESP 18; TEMP 36.9; O2SAT 97; O2SAT 98; BMI 19.8
[2021-03-02 12:40] LABS: Basophils Percent Auto 1.1 % (0-2); Eosinophils Percent Auto 1.1 % (0-4); Hematocrit 30.8 % (37-47); Hemoglobin 9.9 g/dl (12.0-16.0); Lymphocytes Absolute Auto 0.7 X10*3/uL (1.2-4.9); Lymphocytes Percent Auto 23.9 % (20-40); MANUAL DIFF FLAG SCAN; Mean Corpuscular HGB Conc 32.1 g/dl (31.0-35.0); Mean Corpuscular Volume 90.3 fL (80-98); Mean Platelet Volume 9.8 fL (9.4-12.3); Monocytes Absolute Auto 0.3 X10*3/uL (0.1-1.2); Monocytes Percent Auto 10.7 % (2-11); Neutrophils Absolute Auto 1.8 X10*3/uL (2.0-8.3); Neutrophils Percent Auto 63.2 % (45-73); Platelet Count 189 X10*3/uL (160-400); Red Blood Count 3.41 X10*6/uL (4.20-5.50); Red Cell Distribution Width 13.8 % (11.0-16.0); SCAN SMEAR FLAG 1; White Blood Count 2.8 X10*3/uL (4.8-10.8)
--- NOTE | 2021-03-02 12:53 | PC.NURSE ---
PT SELF REPORTING HER CONFUSION AND FORGETFULNESS IS AN ACUTE ISSUE, DEVELOPED OVER THE LAST FEW DAYS. SHE IS ALSO EXPERIENCING URINARY URGENCY & FREQUENCY. ACCOMPANIED PT TO BATHROOM, SHE IS UNSTEADY, DENIES DIZZINESS, REPORTS ONLY L KNEE PAIN.
[2021-03-02 12:54] LABS: Glucose Urine UA NEG (NEG); Leukocyte Esterase Urine NEG (NEG); Nitrite Urine NEG (NEG); PH 6.5 (5.0-8.0); Urine Blood 1+ (NEG); Urine Ketones NEG (NEG); Urine Protein NEG (NEG-TRACE)
[2021-03-02 12:55] LABS: COVID-19 Test Negative (Negative)
[2021-03-02 12:55] LABS: Appearance Urine CLEAR; Color Urine YELLOW
[2021-03-02 13:05] LABS: Anion Gap 11 (12-20); Blood Urea Nitrogen 16 mg/dL (9-16); Calcium 8.8 mg/dL (8.4-10.2); Carbon Dioxide 30 mmol/L (22-29); Chloride 103 mmol/L (96-108); Creatinine Clr Calc Pharmacy 55.6; Estimated Glomerular Filt Rate > 60; Glucose Random 118 mg/dL (60-115); Potassium 3.7 mmol/L (3.3-5.1); Sodium 140 mmol/L (135-145)
[2021-03-02 13:09] LABS: SLIDE REVIEW VERIFIED
[2021-03-02 13:13] LABS: Mucus Urine 1+ /LPF; Squamous Epithelial Cell Urine TRACE /LPF; WBC Urine 0-2 /HPF (0-4)
--- NOTE | 2021-03-02 13:30 | ECG_ITS ---
Test Reason : CONFUSION Blood Pressure : / mmHG Vent. Rate : 083 BPM Atrial Rate : 083 BPM P-R Int : 132 ms QRS Dur : 092 ms QT Int : 362 ms P-R-T Axes : 039 008 078 degrees QTc Int : 425 ms Normal sinus rhythm Left ventricular hypertrophy with repolarization abnormality Abnormal ECG When compared with ECG of 23-DEC-2020 15:42, T wave inversion no longer evident in Inferior leads T wave inversion no longer evident in Lateral leads Referred By: Elena Oshea Electronically Signed By:PARUL CORONADO MD
--- NOTE | 2021-03-02 14:29 | ED_ITS ---
HPI - General Adult General Chief complaint: Extremity Problem Stated complaint: L KNEE PAIN,UNK IF INJURY Time Seen by Provider: 03/02/21 12:08 Source: patient and EMS Mode of arrival: EMS Limitations: altered mental status (Confusion) History of Present Illness HPI narrative: 75-year-old female with a past medical history of hypertension, hyperlipidemia, multiple myeloma, COPD, plasmacytoma, B12 deficiency and r ecurrent falls who currently lives alone and has a visiting nurse presenting to the ED via EMS for increased confusion over the past few days, decreased ability to perform ADLs and worsening left knee pain. She was sent over by her visiting nurse. She was recently seen here on 12/23/2020 general weakness, ROSIE, rhabdomyolysis and fall with left knee injury was sent to short-term rehab at [facility] for a few weeks and was discharged home and since then she reports she has been declining with the above. Denies any dizziness, lightheadedness, headaches, changes in vision, sore throat, runny nose/nasal congestion, cough, chest pain, shortness of breath, dyspnea on exertion, orthopnea, palpitations, nausea/vomiting/diarrhea, abdominal pain, back pain, dysuria, hematuria, abnormal vaginal discharge, black or bloody stools or any new falls injuries or trauma. Denies any other symptoms complaints or concerns at this time. MD complaint: Increased confusion, left knee pain, decreased ability to perform ADLs Related Data Home Medications Medication Instructions Recorded Confirmed calcium carbonate-vitamin D3 1 tab PO BID 12/23/20 03/02/21 cyanocobalamin (vitamin B-12) 1,000 mcg PO DAILY 12/23/20 03/02/21 simvastatin 10 mg PO DAILY 12/23/20 03/02/21 Allergies Allergy/AdvReac Type Severity Reaction Status Date / Time No Known Allergies Allergy Verified 03/02/21 12:08 Review of Systems Review of Systems: Constitutional : No Weight loss, No Fever, No Chills, No Night Sweats, No Fatigue, No Malaise ENT/Mouth : No Hearing loss, No Ear Pain, No Nasal Congestion, No Sinus Pain, No Hoarseness, No sore throat, No Rhinorrhea, No Swallowing Difficulty Eyes: No Eye Pain, No Swelling, No Redness, No Foreign Body, No Discharge, No Vision Changes Cardiovascular : No Chest Pain, No SOB, No Dyspnea on Exertion, No Orthopnea, No Edema, No Palpitations Respiratory : No Cough, No Sputum, No Wheezing, No Smoke Exposure, No Dyspnea Gastrointestinal : No Nausea, No Vomiting, No Diarrhea, No Constipation, No abdominal Pain, No Hematochezia, No Melena Genitourinary : no irregular bleeding, No Dysuria, No Urinary Frequency, No Hematuria, No Urinary Incontinence, No Urgency, No Flank Pain, No Urinary Flow Changes, No Hesitancy Musculoskeletal : + joint pain to left knee, No Myalgias, No Joint Swelling Skin : +Wound to left knee, otherwise No other Skin Lesions, No rash Neuro : + increasing confusion/forgetfulness, No Weakness, No Numbness, No Paresthesias, No Loss of Consciousness, No Dizziness, No Headache Psych : No Anxiety/Panic, No Depression, No SI/HI/AH/VH, No Social Issues, Heme/Lymph: No Bruising, No Bleeding,No Lymphadenopathy Endocrine : No Polyuria, No Polydipsia, No Temperature Intolerance Yes all other systems are reviewed and are negative PMFSH Past Medical History Attestation statement: The following information was validated with the patient. Medical History B12 deficiency COPD (chronic obstructive pulmonary disease) HLD (hyperlipidemia) HTN (hypertension) Multiple myeloma Plasmacytoma Social History Social History Household Members: None Housing: House Alcohol intake: never Smoking Status: Never smoker Second Hand Smoke Exposure: No Advance Directives: Yes Advance Directives Information Provided: Yes Advance Directives on File: Yes Advance Directives Date on File: 12/26/20 service: No Current occupational status: retired Physical Exam Vital Signs: Vital Signs: Last Vital Signs Temp 98.5 F 03/02/21 12:04 Pulse 92 03/02/21 14:52 Resp 18 03/02/21 12:04 BP 185/88 H 03/02/21 14:52 Pulse Ox 97 03/02/21 14:52 Body Mass Index 19.8 Vital signs have been reviewed as normal and appeared to be correct. Blood pressure hypertensive at 185/88. Heart rate normal. Respiration rate normal. Temperature normal. Oxygen saturation normal. Appearance: Alert. Oriented X3. No acute distress. Head: Normal external exam. Normocephalic. Atraumatic. Able to rotate head bilaterally. Eyes: PERRLA. EOMI. No nystagmus noted. Conjunctiva and sclera normal. Eyelids normal. Corneal reflex normal. ENT: EAC normal. TM's Normal. Hearing normal. Pharynx normal. Uvula midline. tongue midline. Moist mucous membranes. No trismus noted. No drooling noted. No muffled voice noted. No nystagmus noted. Neck: Normal inspection. Neck supple. FROM. No adenopathy. Trachea midline. Thyroid Normal. No meningeal signs. No neck mass noted. CVS: Normal heart rate and rhythm. Heart sound normal. No murmurs noted. Pulses normal throughout. Respiratory: No respiratory distress. Painless inspiration. Breath sounds normal. No wheezes/rales/rhonchi noted. Chest nontender. No accessory muscle usage noted or decreased air movement noted. Abdomen: Soft and nontender. Bowel sounds normal in all 4 quadrants. No distention noted. No organomegaly noted. No visible injury noted. Back: No CVA tenderness. Full range of motion noted. Skin: Skin warm and dry. Normal skin color. Normal skin turgor. No rashes/lesions/lacerations noted. Extremities: No lower extremity edema. Extremities exhibit normal range of motion. Extremities nontender. Able to shrug shoulders bilaterally and keep up against resistance. Neuro: Oriented X 3. No motor deficit. No sensory deficit. Reflexes normal. Moving all extremities. No focal motor deficits. Cranial nerves II-XI intact bilaterally. Facial strength normal. Normal cognition. Speech normal. Gait normal. Strength 5/5 throughout. No pronator drift. No tremor noted. No fasciculations noted. No rigidity noted. Muscle tone normal throughout. No asterixis noted. [id number]-[id number] test normal. Heel to gray test normal. Tandem gait normal. Does not sway with eyes open. Romberg test negative. Rapid alternating movement upper extremity normal. Rapid alternating movement lower extremity normal. Hand drop from overhead Misses face. NIHSS score 0. NIH Stroke Scale Internal: Initial- Upon Arrival Time: 12:08 Level of Consciousness: Alert Level of Consciousness Questions: Answers both questions correctly Level of Consciousness Commands: Performs both tasks correctly Best Gaze: Normal Visual: No visual loss Facial Palsy: Normal Motor Arm (Right): No drift Motor Arm (Left): No drift Motor Leg (Right): No drift Motor Leg (Left): No drift Limb Ataxia: Absent Sensory: Normal Best Language: No aphasia Dysarthia: Normal Extinction and Inattention: No abnormality Score: 0 Course Course Course Narrative: 12:08pm - 75-year-old female presenting to the ED via EMS for increased confusion over the past few days with associated decreased ability to perform ADLs and worsening left knee pain. - on exam patient is alert and oriented x3. Not in any acute distress. No focal neuro deficits are noted. NIH SS score 0. No tPA indicated as patient has non disabling symptoms. Patient mildly hypertensive at 185/88 otherwise all other vitals are within normal limits. CV RRR. Lungs CTA. Abdomen is soft and nontender. Left knee with well-healing wound noted no fluctuance or signs of infection noted. No streaking noted. - Plan: Labs, CT scan of brain, chest x-ray, EKG then if all negative will medically clear and obtain a physical therapy evaluation and case management consult as well will then re-evaluate. Patient understands agrees with this plan. Reevaluation(s) Reevaluation #1: - labs obtained and patient with white blood cell count at 2000. - Mild anemia - random glucose 118 - UA within normal limits no evidence of UTI. - COVID swab negative. - chest x-ray within normal limits no acute processes are noted. - CT scan of brain within normal limits no acute processes are noted. - patient was meeting SIRs criteria due to tachycardia and low white blood cell count although no other signs of sepsis to indicate IV fluids or IV antibiotics. - lactic acid 0.7. - troponin returned at this time and is elevated at 57.5 therefore she will need a repeat troponin at 18:00 - I had placed the PT consult on the patient prior to the additional labs that I had ordered and they cleared the patient they do not recommend short-term rehab therefore patient will need a repeat troponin and if negative patient can be sent back home case management can set up transportation. Time: 16:50 Reevaluation #2: - sign out to NICOL Rogers pending repeat troponin if negative patient can be discharged home case management can set up a ride home. Patient understands agrees the plan. Time: 17:14 Medical Decision Making Medical Records Medical records reviewed: Yes I reviewed the patient's medical records. Lab Data Lab results reviewed: Yes I reviewed the patient's lab results. Result diagrams: 03/02/21 12:29 03/02/21 12:29 Labs: Lab Results 03/02/21 03/02/21 03/02/21 Range/Units 12:29 12:29 12:29 WBC 2.8 L (4.8-10.8) X10*3/uL RBC 3.41 L (4.20-5.50) X10*6/uL Hgb 9.9 L (12.0-16.0) g/dl Hct 30.8 L (37-47) % MCV 90.3 (80-98) fL MCH 29.0 (27.0-33.0) pg MCHC 32.1 (31.0-35.0) g/dl RDW 13.8 (11.0-16.0) % Plt Count 189 D (160-400) X10*3/uL MPV 9.8 (9.4-12.3) fL Immature Gran % (Auto) 0.0 (0.0-0.4) % Neut % (Auto) 63.2 (45-73) % Lymph % (Auto) 23.9 (20-40) % [place] % (Auto) 10.7 (2-11) % Eos % (Auto) 1.1 (0-4) % Baso % (Auto) 1.1 (0-2) % Lymph # (Auto) 0.7 L (1.2-4.9) X10*3/uL [place] # (Auto) 0.3 (0.1-1.2) X10*3/uL Eos # (Auto) 0.0 (0.0-0.4) X10*3/uL Baso # (Auto) 0.0 (0.0-0.2) X10*3/uL Abs Immat Gran (auto) 0.00 (0.00-0.03) X10*3/uL Absolute Neuts (auto) 1.8 L (2.0-8.3) X10*3/uL Absolute Nucleated RBC 0.000 (0.0-0.012) X10*3/uL Nucleated RBC % (auto) 0.0 (0.0-0.2) /100WBC Smear Tech's Comments VERIFIED Sodium 140 (135-145) mmol/L Potassium 3.7 (3.3-5.1) mmol/L Chloride 103 (96-108) mmol/L Carbon Dioxide 30 H (22-29) mmol/L Anion Gap 11 L (12-20) BUN 16 D (9-16) mg/dL Creatinine 0.77 (0.5-1.4) mg/dL Estim Creat Clear Calc 55.6 Estimated GFR > 60 Random Glucose 118 H (60-115) mg/dL Lactic Acid (0.5-2.0) mmol/L Calcium 8.8 D (8.4-10.2) mg/dL Magnesium (1.6-2.6) mg/dL Total Bilirubin (0.0-1.0) mg/dL Direct Bilirubin (0.0-0.5) mg/dL AST (5-31) U/L ALT (0-31) U/L Alkaline Phosphatase (39-117) U/L Troponin I High Sens (<3.5-17.0) ng/L Total Protein (6.5-8.0) g/dL Albumin (3.5-5.0) g/dL TSH (0.32-4.0) uIU/mL Urine Color Urine Appearance Urine pH (5.0-8.0) Ur Specific [place] (1.005-1.025) Urine Protein (NEG-TRACE) MG/DL Urine Glucose (UA) (NEG) MG/DL Urine Ketones (NEG) MG/DL Urine Blood (NEG) Urine Nitrite (NEG) Ur Leukocyte Esterase (NEG) Urine RBC (0) /HPF Urine WBC (0-4) /HPF Ur Squamous Epith Cells /LPF Urine Bacteria /LPF Urine Mucus /LPF COVID-19 ([place]) Negative (Negative) COVID-19 Clin Com See Note 03/02/21 03/02/21 03/02/21 Range/Units 12:45 16:06 16:06 WBC (4.8-10.8) X10*3/uL RBC (4.20-5.50) X10*6/uL Hgb (12.0-16.0) g/dl Hct (37-47) % MCV (80-98) fL MCH (27.0-33.0) pg MCHC (31.0-35.0) g/dl RDW (11.0-16.0) % Plt Count (160-400) X10*3/uL MPV (9.4-12.3) fL Immature Gran % (Auto) (0.0-0.4) % Neut % (Auto) (45-73) % Lymph % (Auto) (20-40) % [place] % (Auto) (2-11) % Eos % (Auto) (0-4) % Baso % (Auto) (0-2) % Lymph # (Auto) (1.2-4.9) X10*3/uL [place] # (Auto) (0.1-1.2) X10*3/uL Eos # (Auto) (0.0-0.4) X10*3/uL Baso # (Auto) (0.0-0.2) X10*3/uL Abs Immat Gran (auto) (0.00-0.03) X10*3/uL Absolute Neuts (auto) (2.0-8.3) X10*3/uL Absolute Nucleated RBC (0.0-0.012) X10*3/uL Nucleated RBC % (auto) (0.0-0.2) /100WBC Smear Tech's Comments Sodium (135-145) mmol/L Potassium (3.3-5.1) mmol/L Chloride (96-108) mmol/L Carbon Dioxide (22-29) mmol/L Anion Gap (12-20) BUN (9-16) mg/dL Creatinine (0.5-1.4) mg/dL Estim Creat Clear Calc Estimated GFR Random Glucose (60-115) mg/dL Lactic Acid 0.7 (0.5-2.0) mmol/L Calcium (8.4-10.2) mg/dL Magnesium (1.6-2.6) mg/dL Total Bilirubin (0.0-1.0) mg/dL Direct Bilirubin (0.0-0.5) mg/dL AST (5-31) U/L ALT (0-31) U/L Alkaline Phosphatase (39-117) U/L Troponin I High Sens 57.5 H D (<3.5-17.0) ng/L Total Protein (6.5-8.0) g/dL Albumin (3.5-5.0) g/dL TSH (0.32-4.0) uIU/mL Urine Color YELLOW Urine Appearance CLEAR Urine pH 6.5 (5.0-8.0) Ur Specific [place] 1.010 (1.005-1.025) Urine Protein NEG (NEG-TRACE) MG/DL Urine Glucose (UA) NEG (NEG) MG/DL Urine Ketones NEG (NEG) MG/DL Urine Blood 1+ H (NEG) Urine Nitrite NEG (NEG) Ur Leukocyte Esterase NEG (NEG) Urine RBC 1-4 (0) /HPF Urine WBC 0-2 (0-4) /HPF Ur Squamous Epith Cells TRACE /LPF Urine Bacteria NONE /LPF Urine Mucus 1+ /LPF COVID-19 ([place]) (Negative) COVID-19 Clin Com 03/02/21 Range/Units 16:06 WBC (4.8-10.8) X10*3/uL RBC (4.20-5.50) X10*6/uL Hgb (12.0-16.0) g/dl Hct (37-47) % MCV (80-98) fL MCH (27.0-33.0) pg MCHC (31.0-35.0) g/dl RDW (11.0-16.0) % Plt Count (160-400) X10*3/uL MPV (9.4-12.3) fL Immature Gran % (Auto) (0.0-0.4) % Neut % (Auto) (45-73) % Lymph % (Auto) (20-40) % [place] % (Auto) (2-11) % Eos % (Auto) (0-4) % Baso % (Auto) (0-2) % Lymph # (Auto) (1.2-4.9) X10*3/uL [place] # (Auto) (0.1-1.2) X10*3/uL Eos # (Auto) (0.0-0.4) X10*3/uL Baso # (Auto) (0.0-0.2) X10*3/uL Abs Immat Gran (auto) (0.00-0.03) X10*3/uL Absolute Neuts (auto) (2.0-8.3) X10*3/uL Absolute Nucleated RBC (0.0-0.012) X10*3/uL Nucleated RBC % (auto) (0.0-0.2) /100WBC Smear Tech's Comments Sodium (135-145) mmol/L Potassium (3.3-5.1) mmol/L Chloride (96-108) mmol/L Carbon Dioxide (22-29) mmol/L Anion Gap (12-20) BUN (9-16) mg/dL Creatinine (0.5-1.4) mg/dL Estim Creat Clear Calc Estimated GFR Random Glucose (60-115) mg/dL Lactic Acid (0.5-2.0) mmol/L Calcium (8.4-10.2) mg/dL Magnesium 2.1 (1.6-2.6) mg/dL Total Bilirubin 0.5 (0.0-1.0) mg/dL Direct Bilirubin 0.2 (0.0-0.5) mg/dL AST 15 D (5-31) U/L ALT 8 (0-31) U/L Alkaline Phosphatase 83 (39-117) U/L Troponin I High Sens (<3.5-17.0) ng/L Total Protein 6.4 L (6.5-8.0) g/dL Albumin 4.0 (3.5-5.0) g/dL TSH 1.93 (0.32-4.0) uIU/mL Urine Color Urine Appearance Urine pH (5.0-8.0) Ur Specific [place] (1.005-1.025) Urine Protein (NEG-TRACE) MG/DL Urine Glucose (UA) (NEG) MG/DL Urine Ketones (NEG) MG/DL Urine Blood (NEG) Urine Nitrite (NEG) Ur Leukocyte Esterase (NEG) Urine RBC (0) /HPF Urine WBC (0-4) /HPF Ur Squamous Epith Cells /LPF Urine Bacteria /LPF Urine Mucus /LPF COVID-19 ([place]) (Negative) COVID-19 Clin Com Imaging Data Chest x-ray: Attestation: I personally reviewed and interpreted this imaging study as follows: Radiologist's impression: FINDINGS: The lungs are well expanded. There is no focal consolidation, edema, or effusion. No pneumothorax. The cardiomediastinal silhouette is within normal limits. No acute osseous abnormality. Degenerative changes of the spine. Likely chronic healed proximal left humeral fracture. XR/XR chest 2V IMPRESSION: No acute pulmonary finding. CT scan of brain without contrast: Attestation: I personally reviewed and interpreted this imaging study as follows: Radiologist's impression: FINDINGS: There is no evidence of acute intracranial hemorrhage or territorial infarction. No abnormal mass effect or midline shift is seen. Rosales to white matter differentiation is well preserved. No extra-axial fluid collections are identified. No hydrocephalus. Proportional prominence of the ventricles and sulcal spaces is consistent with mild volume loss. Patchy periventricular and deep white matter hypoattenuation is consistent with mild small vessel ischemic changes. No acute osseous or soft tissue abnormality. Hyperostosis frontalis interna. The mastoid air cells and visualized portions of the paranasal sinuses are well aerated. CT/CT head/brain wo con IMPRESSION: No acute intracranial pathology. Mild volume loss with small vessel ischemic changes. ECG Data Attestation: I personally reviewed and interpreted this ECG as follows: Interpretation: Normal sinus rhythm with ventricular rate of 83 with left larry tricular hypertrophy with repolarization abnormality Q-waves are noted as well although no acute ischemic changes are noted. Similar compared to prior EKG on 12/23/2020. Discharge Plan Discharge Clinical Impression: Chronic pain of left knee Patient Disposition: Home, Self-Care Prescriptions: No Action simvastatin 10 mg tablet 10 mg PO DAILY RF: 0 cyanocobalamin (vitamin B-12) 1,000 mcg tablet 1,000 mcg PO DAILY RF: 0 calcium carbonate-vitamin D3 500 mg(1,250mg) -400 unit tablet,chewable 1 tab PO BID RF: 0 Referrals: Demetri [Outside] - 2 days Aida Cho NP [Primary Care Provider] - 2 days
[2021-03-02 14:52] VITALS: BP 185/88; PULSE 92; O2SAT 97
[2021-03-02 16:38] LABS: Lactic Acid 0.7 mmol/L (0.5-2.0)
[2021-03-02 16:43] LABS: Alanine Aminotransferase 8 U/L (0-31); Alkaline Phosphatase 83 U/L (39-117); Aspartate Amino Transferase 15 U/L (5-31); Bilirubin Direct 0.2 mg/dL (0.0-0.5); Bilirubin Total 0.5 mg/dL (0.0-1.0); Magnesium 2.1 mg/dL (1.6-2.6); Total Protein 6.4 g/dL (6.5-8.0)
[2021-03-02 16:54] LABS: Troponin-I High Sensitivity 57.5 ng/L (<3.5-17.0)
[2021-03-02 17:05] LABS: Thyroid Stimulating Hormone 1.93 uIU/mL (0.32-4.0)
[2021-03-02 17:31] VITALS: BP 131/66; PULSE 80; RESP 16; O2SAT 98
--- NOTE | 2021-03-02 17:36 | MHC.CM.ED ---
CM met with pt. PT recommends home PT. Pt is active with [facility]. Referral has already been place by CM. Awaiting repeat troponin at 1800. Pt lives alone and is independent. Has VNA services and Me[facility] on wheels through [facility]. Pt uses a cane and has a wheelchair and wheeled walker that she doesn't use. Per HCP/brother, Fred Landeros [phone]) is on file. D/c plan is home with VNA services/ home PT. Transportation is via chair van. Pt agreeable to being billed $45 for service. CM to follow for d/c needs.
--- NOTE | 2021-03-02 18:30 | PC.NURSE ---
pt awaiting troponin level, is forgetful and requires frequent reminders of why she is here and what the plan of care is. eating in stretcher. resp even and nonlaboured, skin pwd.
[2021-03-02 18:43] LABS: Troponin-I High Sensitivity 77.9 ng/L (<3.5-17.0)
--- NOTE | 2021-03-02 18:48 | ECG_ITS ---
Test Reason : TROPONIN ELEVATION Blood Pressure : / mmHG Vent. Rate : 085 BPM Atrial Rate : 085 BPM P-R Int : 132 ms QRS Dur : 100 ms QT Int : 364 ms P-R-T Axes : 051 015 097 degrees QTc Int : 433 ms Normal sinus rhythm Nonspecific ST and T wave abnormality Abnormal ECG When compared with ECG of 02-MAR-2021 15:11, No significant change was found Referred By: Sue iFelds Electronically Signed By:PARUL CORONADO MD
[2021-03-02 19:57] LABS: Troponin-I High Sensitivity 90.8 ng/L (<3.5-17.0)
[2021-03-02 19:59] VITALS: BP 112/53; PULSE 84; RESP 16; TEMP 36.8; O2SAT 98
--- NOTE | 2021-03-02 21:39 | MHC.CM.ED ---
Pt D/C to home. [facility] to follow. Pt active with them. Home PT. [facility] chair van booked for 10:30pm. Pt aware of the $43 charge and $3 per mile. Pt agreeable to fee. Happy to be going home.
== END 2021-03-02 22:20 | disposition home or self-care (01) ==
PROVIDERS: Physician Assistant; Physician Assistant Medical; Emergency Provider Emergency Medicine Emergency Medical Services; PCP Nurse Practitioner Family
DX: G89.29 Other chronic pain (principal); M25.562 Pain in left knee; R41.82 Altered mental status, unspecified; Z20.822 Contact with and (suspected) exposure to COVID-19; I10 Essential (primary) hypertension; E78.5 Hyperlipidemia, unspecified; J44.9 Chronic obstructive pulmonary disease, unspecified; Z91.81 History of falling; Z79.02 Long term (current) use of antithrombotics/antiplatelets
CPT/HCPCS: 36415; 70450; 71046; 73564; 80048; 80076; 81001; 81003; 83605; 83735; 84443; 84484; 85025; 87040; 87635; 93005; 97161; 99284; 99285